=== PATIENT | female | born 1980 | race Two or more races ===

== ENCOUNTER 2022-12-16 06:09 | Inpatient (IN) | payer BC, OTHER ==
[~2022-12-16] VITALS: Ht 177.8 cm; Wt 94.8 kg
[2022-12-16 06:53] LABS: Urine WBC None Seen /hpf (0 - 5)
[2022-12-16 06:57] LABS: Basophils # (auto) 0 10 ^3/uL (0-0.2); Basophils % (auto) 0.5 % (0.0-2.0); Eosinophils # (auto) 0.1 10 ^3/uL (0-0.8); Eosinophils % (auto) 1.1 % (0.0-7.0); Hematocrit 40.1 % (36.0-46.0); Hemoglobin 13.8 g/dL (12.2-16.2); Lymphocytes # (auto) 1.8 10 ^3/uL (0.4-5.4); Lymphocytes % (auto) 30.4 % (10.0-50.0); Mean Corpuscular Hemoglobin 33.3 pg (28.0-32.0); Mean Corpuscular Hgb Conc. 34.4 g/dL (32.0-36.0); Monocytes # (auto) 0.5 10 ^3/uL (0-1.3); Monocytes % (auto) 8.8 % (0.0-12.0); Neutrophils # (auto) 3.4 10 ^3/uL (1.6-8.6); Neutrophils % (auto) 59.2 % (37.0-80.0); Nucleated Red Blood Cells % 0.1 %; Red Blood Cells 4.14 10^6/uL (4.0-5.20); Red Cell Distribution Width 12.7 % (11.8-14.3); White Blood Cell 5.8 10^3/uL (4.4-10.8)
[2022-12-16 07:00] LABS: Urine Bacteria FEW /hpf (None Seen); Urine Blood Negative /uL (Negative); Urine Clarity Clear (Clear); Urine Color Colorless (Yellow); Urine Protein, UAD Negative (Negative); Urine Specific Gravity 1.008 (1.001-1.035); Urine Urobilinogen Normal (Negative); Urine pH 5.5 (5.0-8.0)
[2022-12-16 07:08] LABS: INR 1.08 (0.9-1.15); Partial Thromboplastin Time 26.7 SEC (24.5-34.5); Prothrombin Time 11.3 sec (9.3-11.8)
[2022-12-16 07:19] LABS: Alanine Aminotransferase 11 U/L (7-40); Albumin 4.2 g/dL (3.2-4.8); Alkaline Phosphatase 57 U/L (46-116); Anion Gap 4 (5-15); Aspartate Aminotransferase 13 U/L (13-40); BUN/Creatinine Ratio 13.9 (10.0-20.0); Bilirubin, Total 0.7 mg/dL (0.2-1.0); Blood Urea Nitrogen 11 mg/dL (9-23); Calcium 9.1 mg/dL (8.7-10.4); Carbon Dioxide 28 mmol/L (20-30); Chloride 109 mmol/L (98-107); Glucose 90 mg/dL (74-106); Potassium 4.1 mmol/L (3.5-5.1); Sodium 141 mmol/L (136-145); Total Protein 6.3 g/dL (5.7-8.2)
[2022-12-16] MEDS ORDERED: ASPirin 325 MG TAB PO ONE (08:15)
[2022-12-16] MEDS ORDERED: NITROGLYCERIN 0.4 MG SL TAB SL ONE (08:15)
[2022-12-16 08:35] VITALS: PULSE 62
[2022-12-16] MEDS ORDERED: NITROGLYCERIN 0.4 MG SL TAB SL PRN (11:45)
[2022-12-16] MEDS ORDERED: MORPHINE SULFATE 4 MG/ML SYR/VIAL IV PRN (11:45)
[2022-12-16] MEDS ORDERED: ACETAMINOPHEN 325 MG TAB PO PRN (11:45)
[2022-12-16] MEDS ORDERED: ONDANSETRON HCL 4 MG/2 ML VIAL IV PRN (11:45)
[2022-12-16] MEDS ORDERED: SODIUM CHLORIDE 0.9% 500 ML IV ONE (19:15)
[2022-12-16] MEDS ORDERED: SODIUM CHLORIDE 0.9% 1,000 ML IV ONE (19:15)
[2022-12-16 19:30] VITALS: PULSE 57; RESP 14; O2SAT 98
[2022-12-16] MEDS: SODIUM CHLORIDE 0.9% 1,000 ML IV SCH (20:00)
[2022-12-16 22:34] VITALS: BP 107/42; PULSE 74; TEMP 36.7
[2022-12-16] MEDS: ATORVASTATIN 20 MG TAB PO SCH (23:21)
[2022-12-17] VITALS (7 sets, daily range): BP systolic 98–101; BP diastolic 55–63; PULSE 47–58; RESP 16–19; TEMP 97.6–98; O2SAT 96–99
[2022-12-17] MEDS: SODIUM CHLORIDE 0.9% 1,000 ML IV SCH ×4 (02:40→21:23)
[2022-12-17 05:31] LABS: Basophils # (auto) 0 10 ^3/uL (0-0.2); Basophils % (auto) 0.6 % (0.0-2.0); Eosinophils # (auto) 0.1 10 ^3/uL (0-0.8); Eosinophils % (auto) 2.1 % (0.0-7.0); Hematocrit 36.8 % (36.0-46.0); Hemoglobin 12.4 g/dL (12.2-16.2); Lymphocytes # (auto) 2.3 10 ^3/uL (0.4-5.4); Lymphocytes % (auto) 49.8 % (10.0-50.0); Mean Corpuscular Hemoglobin 32.9 pg (28.0-32.0); Mean Corpuscular Hgb Conc. 33.6 g/dL (32.0-36.0); Mean Corpuscular Volume 97.9 fL (80.0-100.0); Monocytes # (auto) 0.4 10 ^3/uL (0-1.3); Monocytes % (auto) 9.3 % (0.0-12.0); Neutrophils # (auto) 1.8 10 ^3/uL (1.6-8.6); Neutrophils % (auto) 38.2 % (37.0-80.0); Red Blood Cells 3.76 10^6/uL (4.0-5.20); Red Cell Distribution Width 12.3 % (11.8-14.3); White Blood Cell 4.7 10^3/uL (4.4-10.8)
[2022-12-17 06:24] LABS: Albumin 3.5 g/dL (3.2-4.8); Alkaline Phosphatase 48 U/L (46-116); Anion Gap 5 (5-15); Aspartate Aminotransferase 11 U/L (13-40); BUN/Creatinine Ratio 8.2 (10.0-20.0); Blood Urea Nitrogen 6 mg/dL (9-23); Calcium 8.6 mg/dL (8.7-10.4); Carbon Dioxide 25 mmol/L (20-30); Chloride 112 mmol/L (98-107); Glucose 87 mg/dL (74-106); Sodium 142 mmol/L (136-145)
[2022-12-17 06:25] LABS: Alanine Aminotransferase < 9 U/L (7-40); Bilirubin, Total 0.7 mg/dL (0.2-1.0); Total Protein 5.5 g/dL (5.7-8.2)
[2022-12-17] MEDS: ASPirin 81 mg TAB PO SCH (08:39)
[2022-12-17] MEDS: DOCUSATE SOD 100 MG CAP PO SCH (08:39)
[2022-12-17] MEDS ORDERED: IPRATROPIUM BROM 0.5 MG/2.5ML INH SOL ONE (11:37)
[2022-12-17] MEDS ORDERED: ALBUTEROL MEDNEB 2.5 mg/3ml NEB ONE (11:37)
[2022-12-17] MEDS: ATORVASTATIN 20 MG TAB PO SCH (21:22)
[2022-12-18 05:00] VITALS: BP 107/68; PULSE 53; RESP 16; TEMP 97.3; O2SAT 98
[2022-12-18] MEDS: SODIUM CHLORIDE 0.9% 1,000 ML IV SCH ×2 (05:08→13:13)
[2022-12-18 08:00] VITALS: PULSE 57; RESP 17
[2022-12-18 09:00] VITALS: BP 106/67; PULSE 53; RESP 18; TEMP 97.9; O2SAT 97
[2022-12-18] MEDS: ASPirin 81 mg TAB PO SCH (09:07)
[2022-12-18] MEDS: DOCUSATE SOD 100 MG CAP PO SCH (09:08)
[2022-12-18 13:00] VITALS: BP 97/49; PULSE 67; RESP 18; TEMP 98.1; O2SAT 94
[2022-12-18 14:36] VITALS: BP 97/49; PULSE 67; RESP 18; TEMP 98.1; O2SAT 94
== END 2022-12-18 16:28 | disposition home or self-care (01) | DRG 206 ==
LOC: ER 06:09 → TELE 11:49 → TELE-WESTW 21:28
PROVIDERS: ADMIT Internal Medicine
DX: M94.0 Chondrocostal junction syndrome [Tietze] (principal); E66.9 Obesity, unspecified; E78.5 Hyperlipidemia, unspecified; I10 Essential (primary) hypertension; Z68.30 Body mass index [BMI] 30.0-30.9, adult; Z72.0 Tobacco use; Z98.84 Bariatric surgery status; I25.2 Old myocardial infarction; Z82.49 Family history of ischemic heart disease and other diseases of the circulatory system; Z98.1 Arthrodesis status; Z71.6 Tobacco abuse counseling
CPT/HCPCS: 36415; 71045; 78452; 80053; 80061; 81001; 81025; 83735; 84443; 84484; 85025; 85379; 85610; 85730; 93005; 93017; 93306; 96360; 96361; G0378

== ENCOUNTER 2024-12-02 10:48 | Emergency (ER) | payer BC, OTHER, MEDICAID ==
[~2024-12-02] VITALS: Ht 177.8 cm; Wt 82.4 kg
[2024-12-02] MEDS: SODIUM CHLORIDE 0.9% 1,000 ML IV ONE (11:30)
[2024-12-02 11:58] LABS: Urine Budding Yeast OCCASIONAL /hpf (None Seen); Urine Protein, UAD TRACE (Negative)
[2024-12-02 12:05] LABS: Hematocrit 41.5 % (36.0-46.0); Hemoglobin 14.3 g/dL (12.2-16.2); Mean Corpuscular Hemoglobin 34.4 pg (28.0-32.0); Mean Corpuscular Volume 99.7 fL (80.0-100.0); Nucleated Red Blood Cells % 0.1 %
[2024-12-02 12:13] LABS: Chloride 107 mmol/L (98-107); Potassium 3.6 mmol/L (3.5-5.1); Sodium 144 mmol/L (136-145)
[2024-12-02 12:14] LABS: Anion Gap 12 (5-15); Carbon Dioxide 25 mmol/L (20-31)
[2024-12-02 12:15] VITALS: PULSE 89; RESP 17; O2SAT 96
[2024-12-02 12:17] LABS: Amphetamine Screen, Urine Neg (NEGATIVE); Barbiturate Scree,Urine Neg (NEGATIVE); Benzodiazephine Screen, Urine Neg (NEGATIVE); Cannabinoid Screen, Urine Neg (NEGATIVE); Cocaine Screen, Urine Neg (NEGATIVE); Opiate Scree,Urine Neg (NEGATIVE); Phencyclidine Screen, Urine Neg (NEGATIVE)
[2024-12-02 12:17] LABS: Calcium 8.4 mg/dL (8.7-10.4)
[2024-12-02 12:19] LABS: BUN/Creatinine Ratio 10.1 (10.0-20.0)
[2024-12-02 12:20] LABS: Blood Urea Nitrogen 7 mg/dL (9-23); Glucose 71 mg/dL (74-106)
--- NOTE | 2024-12-02 12:47 | ED.PDOC ---
History of Present Illness HPI Comments Ms. Steen is a 44-year-old female with prior medical history of heavy alcohol use since 2018, who presents today with chief complaint of ear fullness and alcohol withdrawal. The patient states she had been sober for 4 years until June when she relapsed. She states she has drank every day but wants to stop. She refers that her last drink was this morning, reporting 5 shots of fireball. She currently reports anxiety intensity 5/10, denies nausea, vomiting, auditory/visual/tactile hallucinations, headache, chest pain, shortness of breath, and palpitations. Additionally, refers ear fullness for the last 4 months, states she was seen by her primary care provider for this who upon evaluation found no alterations. Due to fear of going into withdrawal, the patient presented to the emergency department. On initial evaluation, the patient is well, anxious, with stable vitals. CIWA 4 Chief Complaint: Anxiety Time Seen by MD: 11:17 Allergies: Coded Allergies: NO KNOWN ALLERGIES (Unverified , 12/16/22) Home Meds Active Scripts Nitrofurantoin Monohydrate Mac (Macrobid) 100 Mg Cap, 100 MG PO BID for 7 Days, #14 CAP Prov:SANJUANITA CARVALHO MD 12/02/24 Information Source: Patient Mode of Arrival: Ambulatory Severity: Mild Timing: Hours Duration: Since onset Past Medical History PAST MEDICAL HISTORY: Gallstones Past Medical History (Other): Heavy drinking Surgical History: Tubal Ligation Surgical History (Other): C5 repair JOB TRACER History: No Pertinent JOB TRACER History Family History Family History: Reviewed,noncontributory to illness, Family hx of Cancer Social History Smoker: Quit Greater Than 1 Year (States she smoked 1 cigarette a day for approximately 8 years with cessation 3 years ago) Alcohol: Heavy (Refers heavy alcohol use since 2017, with 4 year period of sobriety with relapse in June 2024, refers today she drank 5 shots of fireball in the morning) Drugs: Methamphetamine (Patient refers she utilize methamphetamines for 15 years with cessation 10 years ago) Lives In: Home Constitutional: denies: chills, diaphoresis, fatigue, fever, malaise, sweats, weakness EENTM: reports: others (Interchanging ear fullness); denies: blurred vision, double vision, ear discharge, ear drainage, ear pain, ear ringing, eye pain, eye redness, hearing loss, nasal discharge, nose bleeding, nose congestion, nose pain, throat pain, throat swelling Respiratory: denies: cough, hemoptysis, orthopnea, shortness of breath Cardiovascular: reports: diaphoresis; denies: chest pain, dizzy spells, Dyspnea on exertion, edema, irregular heart beat, left arm pain, lightheadedness, palpitations, syncope Gastrointestinal: denies: abdomen distended, abdominal pain, constipated, diarrhea, dysphagia, difficulty swallowing, hematemesis, melena, nausea, poor a ppetite, poor fluid intake, vomiting Genitourinary: denies: abnormal vagina bleeding, burning, dysuria, flank pain, frequency, hematuria, incontinence, pain, urgency Neurological: denies: dizziness, fainting, headache, numbness, paresthesia, seizure, speech problems, tingling, tremors, weakness Musculoskeletal: denies: back pain, joint pain, joint swelling, muscle pain, muscle stiffness, neck pain Integumetry: denies: bruises, laceration, lesions, lumps, rash, wounds Psychiatric: reports: anxiety Physical Exam General Appearance: Normal HEENT: Normal ENT Inspection, PERRL/EOMI, Pharynx Normal Neck: Full Range of Motion, Non-Tender, Normal Inspection Respiratory: Chest Non-Tender, Lungs Clear, No Accessory Muscle Use, No Respiratory Distress, Normal Breath Sounds Cardiovascular: No Edema, No Murmur, No Gallop, Normal Peripheral Pulses, Regular Rate/Rhythm Breast Exam: Deferred Gastrointestinal: Non Tender, No Pulsatile Mass, Normal Bowel Sounds, Soft Genitalia: Deferred Pelvic: Deferred Rectal: Deferred Extremities: Normal capillary refill, Normal inspection, Normal range of motion, No pedal edema Neurologic: Alert, No Motor Deficits, Normal Affect, Normal Mood Cerebellar Function: Normal Reflexes: NOT DONE Skin: Normal Color Lymphatic: Other (No cervical adenopathy) Was a procedure done? Was a procedure done?: No Differential Dx Considerations may include: Alcohol withdrawal, alcohol intoxication, anxiety, delirium tremens X-Ray, Labs, Meds, VS Vital Signs Date Time Temp Pulse Resp B/P (MAP) Pulse Ox O2 Delivery O2 Flow Rate FiO2 12/02/24 17:00 84 16 100/69 (79) 99 12/02/24 16:00 86 10/28/25 16:00 84 15 106/76 (86) 94 12/02/24 15:00 79 15 108/82 (91) 98 12/02/24 14:00 79 20 94/56 (69) 94 12/02/24 13:00 84 20 107/67 (80) 95 12/02/24 12:15 89 17 96 Room Air* 0 21 12/02/24 12:15 98.4 89 17 107/70 (82) 96 98.4 12/02/24 10:50 97.6 118 18 117/80 95 97.6 Lab Test 12/02/24 11:35 12/02/24 11:17 Range/Units White Blood Count 5.1 4.4-10.8 10^3/uL Red Blood Count 4.16 4.0-5.20 10^6/uL Hemoglobin 14.3 12.2-16.2 g/dL Hematocrit 41.5 36.0-46.0 % Mean Corpuscular Volume 99.7 80.0-100.0 fL Mean Corpuscular Hemoglobin 34.4 H 28.0-32.0 pg Mean Corpuscular Hemoglobin Concent 34.5 32.0-36.0 g/dL Red Cell Distribution Width 12.5 11.8-14.3 % Platelet Count 202 140-450 10^3/uL Mean Platelet Volume 7.0 6.9-10.8 fL Neutrophils (%) (Auto) 47.9 37.0-80.0 % Lymphocytes (%) (Auto) 44.9 10.0-50.0 % Monocytes (%) (Auto) 6.0 0.0-12.0 % Eosinophils (%) (Auto) 0.5 0.0-7.0 % Basophils (%) (Auto) 0.7 0.0-2.0 % Neutrophils # (Auto) 2.4 1.6-8.6 10 ^3/uL Lymphocytes # (Auto) 2.3 0.4-5.4 10 ^3/uL Monocytes # (Auto) 0.3 0-1.3 10 ^3/uL Eosinophils # (Auto) 0 0-0.8 10 ^3/uL Basophils # (Auto) 0 0-0.2 10 ^3/uL Nucleated Red Blood Cells 0.1 % Sodium Level 144 136-145 mmol/L Potassium Level 3.6 3.5-5.1 mmol/L Chloride Level 107 98-107 mmol/L Carbon Dioxide Level 25 20-31 mmol/L Anion Gap 12 5-15 Blood Urea Nitrogen 7 L 9-23 mg/dL Creatinine 0.69 0.550-1.02 mg/dL Glomerular Filtration Rate Calc 109 >90 mL/min BUN/Creatinine Ratio 10.1 10.0-20.0 Serum Glucose 71 L 74-106 mg/dL Calcium Level 8.4 L 8.7-10.4 mg/dL Plasma/Serum Blood Alcohol 310.7 H <10 mg/dL Urine Color Yellow Yellow Urine Clarity Turbid H Clear Urine pH 5.5 5.0-9.0 Urine Specific [place] 1.029 1.001-1.035 Urine Protein Trace H Negative Urine Ketones Trace Negative Urine Blood 2+ H Negative /uL Urine Nitrite Negative Negative Urine Bilirubin Negative Negative Urine Urobilinogen Normal Negative mg/dL Urine Leukocyte Esterase 2+ Negative /uL Urine RBC 2 0 - 4 /hpf Urine Microscopic WBC 12 H 0-5 /HPF Urine Squamous Epithelial Cells Mod <5 /hpf Urine Bacteria None seen None Seen /hpf Urine Mucus Few None Seen Urine Yeast (Budding) Occasional None Seen /hpf Urine Glucose Normal Normal mg/dL Urine Opiates Screen Neg NEGATIVE Urine Fentanyl Screen Neg NEGATIVE Urine Barbiturates Screen Neg NEGATIVE Urine Phencyclidine Screen Neg NEGATIVE Urine Amphetamines Screen Neg NEGATIVE Urine Benzodiazepines Screen Neg NEGATIVE Urine Cocaine Screen Neg NEGATIVE Urine Cannabinoids Screen Neg NEGATIVE Current Medications Medications (Trade) Dose Ordered Sig/Carmen Route Start Time Stop Time Status Last Admin Sodium Chloride 1,000 ml @ 1,000 mls/hr Q1H ONCE IV 12/02/24 11:30 12/02/24 12:29 DC 12/02/24 11:30 Lorazepam (Ativan Inj) 1 mg Q6HP PRN IV 12/02/24 11:30 12/02/24 15:14 Folic Acid 1 mg/ Magnesium Sulfate 8 meq/ Multivitamins 10 ml/Thiamine HCl 100 mg/Sodium Chloride 1,013.2 ml @ 126.247 mls/hr DAILY@1800 INJ 12/02/24 12:00 12/02/24 14:07 Ondansetron HCl (Zofran) 4 mg ONCE ONCE IM 12/02/24 13:45 12/02/24 14:24 DC 12/02/24 16:10 Chlordiazepoxide HCl (Librium Capsule) 50 mg ONCE ONCE PO 12/02/24 18:15 12/02/24 18:16 DC 12/02/24 18:36 Time of 1ST Reevaluation: 14:20 Reevaluation 1ST: Worsened (CIWA 13) Time of 2ND Reevaluation: 17:00 Reevaluation 2ND: Improved (CIWA 4) Time of 3RD Reevaluation: 18:00 Reevaluation 3RD: Improved (CIWA 2) Patient Education/Counseling: Diagnosis, Treatment Family Education/Counseling: No Family Present Comments The patient presents today stating that she has decided to stop drinking and is worried she will go into withdrawal Initial evaluation shows a patient that is well, anxious, with stable vitals Physical exam without positive findings CBC, BMP, and urine toxicology without alterations GIOVANNI is over 300 The patient was given 1000 cc bolus of NS, and placed on maintenance fluids Banana bag has been ordered Ativan IV q.6 hours PRN has been ordered We will continue to monitor with serial CIWA protocol evaluation Initial CIWA 4, on re-evaluation CIWA 8. Per Dr. Carvalho, the patient is considered stable and will be discharge once Banana Bag is completed. SEPSIS Sepsis Screen Date sepsis recognized/suspect: Dec 02, 2024 Time Sepsis recognized/suspect: 1051 Recent Procedure: No On Antibiotic Therapy: No Respiratory Rate >20: No Heart Rate >90: Yes Temp<36 C (96.8 F) or >38.3 C: No SBP <90 or MAP <65 mmHG: No New Acute Mental Status Change: No Is the patient on CPAP, BIPAP,: No Physician Orders Place Under Ed Observation (12/02/24 11:17) Lorazepam 2mg/Ml Inj (Ativan Inj) (12/02/24 11:30) Folic Acid... (12/02/24 12:00) Sodium Chloride 0.9% (12/02/24 13:45) Vital Signs Date Time Temp Pulse Resp B/P (MAP) Pulse Ox O2 Delivery O2 Flow Rate FiO2 12/02/24 17:00 84 16 100/69 (79) 99 12/02/24 16:00 86 12/02/24 16:00 84 15 106/76 (86) 94 12/02/24 15:00 79 15 108/82 (91) 98 12/02/24 14:00 79 20 94/56 (69) 94 12/02/24 13:00 84 20 107/67 (80) 95 12/02/24 12:15 89 17 96 Room Air* 0 21 12/02/24 12:15 98.4 89 17 107/70 (82) 96 98.4 12/02/24 10:50 97.6 118 18 117/80 95 97.6 Laboratory Tests Test 12/02/24 11:35 White Blood Count 5.1 10^3/uL (4.4-10.8) Medications Medications Dose Ordered Sig/Carmen Route Start Time Stop Time Status Last Admin Dose Admin Chlordiazepoxide HCl 50 mg ONCE ONCE PO 12/02/24 18:15 12/02/24 18:16 DC 12/02/24 18:36 Folic Acid 1 mg/ Magnesium Sulfate 8 meq/ Multivitamins 10 ml/Thiamine HCl 100 mg/Sodium Chloride 1,013.2 ml @ 126.247 mls/hr DAILY@1800 INJ 12/02/24 12:00 12/02/24 14:07 Lorazepam 1 mg Q6HP PRN IV 12/02/24 11:30 12/02/24 15:14 Ondansetron HCl 4 mg ONCE ONCE IM 12/02/24 13:45 12/02/24 14:24 DC 12/02/24 16:10 Sodium Chloride 1,000 ml @ 1,000 mls/hr Q1H ONCE IV 12/02/24 11:30 12/02/24 12:29 DC 12/02/24 11:30 Departure 1 Departure Time of Disposition: 16:31 Impression: Primary Impression: Alcohol withdrawal Qualified Codes: F10.930 - Alcohol use, unspecified with withdrawal, uncomplicated Additional Impression: UTI (urinary tract infection) Qualified Codes: N30.00 - Acute cystitis without hematuria Disposition: HOME / SELF CARE / HOMELESS Condition: Stable Additional Instructions: You presented today due to alcohol withdrawal Your physical exam showed benign findings Your initial workup including a CBC, BMP, and drug screen were benign. Urinalysis showed possible UTI You were given IV fluids, IV vitamins, and Ativan to aid with your withdrawal Serial re-evaluations show improvement You are considered stable for discharge home with oral benzodiazepines to be taken as directed until you set up care with a rehabilitation center Oral Macrobid 100 mg p.o. b.i.d. for 7 days has been prescribed for UTI to be taken as directed We highly recommend you follow up with your PCP within 1 week If your symptoms were to worsen or persist, please return to the emergency department e-Prescriptions Nitrofurantoin Monohydrate Mac (Macrobid) 100 Mg Cap 100 MG PO BID for 7 Days, #14 CAP Prov: SANJUANITA CARVALHO MD 12/02/24 Discharged With: Self Critical Care Note Critical Care Time?: No Stability Stability form required: JAMES Ortiz RESIDENT Dec 02, 2024 12:46 SANJUANITA CARVALHO MD Dec 02, 2024 16:30
[2024-12-02] MEDS: FOLIC ACID 1 MG, MAGNESIUM SULF SDV 50% 8 MEQ, MULTIPLE VITAMIN 10 ML, THIAMINE INJ 100... INJ SCH (14:07)
[2024-12-02] MEDS: LORazepam 2MG/ML-1ML VIAL IV PRN (15:14)
[2024-12-02] MEDS: ONDANSETRON HCL 4 MG/2 ML VIAL IM ONE (16:10)
[2024-12-02] MEDS: ONDANSETRON HCL 4 MG/2 ML VIAL ONE (16:54)
[2024-12-02] MEDS: SODIUM CHLORIDE 0.9% 1,000 ML IV SCH (17:29)
[2024-12-02] MEDS ORDERED: NITR-87 PO (18:01)
[2024-12-02] MEDS ORDERED: CHL25C PO (18:50)
[2024-12-02 19:30] VITALS: TEMP 97.9
[2024-12-02 19:52] VITALS: PULSE 80; RESP 18; O2SAT 95
[2024-12-02 22:30] VITALS: BP 109/77; PULSE 70; RESP 18; O2SAT 95
== END 2024-12-02 23:01 | disposition home or self-care (01) ==
LOC: ER 10:48
DX: N39.0 Urinary tract infection, site not specified (principal); F10.239 Alcohol dependence with withdrawal, unspecified; F19.90 Other psychoactive substance use, unspecified, uncomplicated; F41.9 Anxiety disorder, unspecified; Z79.899 Other long term (current) drug therapy; Z98.51 Tubal ligation status; Y90.8 Blood alcohol level of 240 mg/100 ml or more
CPT/HCPCS: 36415; 80048; 80307; 80320; 81001; 85025; 96361; 96365; 96366; 96372; 96375; 99285; J2060; J2405; J3411; J3475; J7030